=== PATIENT | female | born 1965 | race Caucasian/White ===

== ENCOUNTER 2018-04-20 14:32 | Emergency (ER) | payer OTHER ==
[2018-04-20] MEDS ORDERED: DEXAMETHASONE 10 MG/ML VIAL PO STA (15:51)
--- NOTE | 2018-04-20 16:37 | ED Physician Documentation ---
PD HPI HEENT - Stated complaint Stated Complaint: THROAT TIGHTNESS - Chief complaint Chief Complaint: General - History obtained from History obtained from: Patient - History of Present Illness Timing - onset: How many days ago (2) Timing - details: Still present Location: Throat Similar symptoms before: Has not had sx before - Additional information Additional information: The patient is a 52-year-old female who presents with sore throat of 2 days' duration. She states it "feels like it is closing up." She has had slight cough, nonproductive. She denies shortness of breath, fever, or rash. She denies history of similar symptoms in the past. She has recently moved to [facility] from [place], and is living in [id number]. She has not noticed any black mold. She is suspicious of environmental allergies from pollen in the air. Review of Systems Constitutional: denies: Fever Eyes: denies: Irritation Ears: denies: Ear pain Nose: reports: Congestion (Slight) Throat: reports: Sore throat Cardiac: denies: Chest pain / pressure Respiratory: reports: Cough (slight, nonproductive.). denies: Dyspnea GI: denies: Abdominal Pain, Nausea, Vomiting : denies: Dysuria Skin: denies: Rash Musculoskeletal: denies: Extremity swelling Neurologic: denies: Headache PD PAST MEDICAL HISTORY - Past Medical History Past Medical History: Yes Other Past Medical History: Bacterial cardio - Past Surgical History Past Surgical History: Yes General: Appendectomy - Present Medications Home Medications: Ambulatory Orders Medication Instructions Recorded Confirmed predniSONE [Deltasone] 20 mg PO DAILY #10 tablet 04/20/18 - Allergies Allergies/Adverse Reactions: Allergies Allergy/AdvReac Type Severity Reaction Status Date / Time morphine AdvReac Emesis Verified 04/20/18 14:52 - Social History Does the pt smoke?: No Smoking Status: Never smoker Does the pt drink ETOH?: Yes Does the pt have substance abuse?: No - Immunizations Immunizations are current?: Yes PD ED PE NORMAL - Vitals Vital signs reviewed: Yes (Initially hypertensive.) - General General: Alert and oriented X 3, Well developed/nourished, Other (Speaks with a low, just above a whisper, voice.) - HEENT HEENT: Atraumatic, Ears normal, Pharynx benign - Neck Neck: No adenopathy, No JVD - Cardiac Cardiac: RRR, No murmur - Respiratory Respiratory: No respiratory distress, Clear bilaterally - Derm Derm: No rash - Extremities Extremities: No edema - Neuro Neuro: Alert and oriented X 3, No motor deficit Results - Vitals Vitals: Oxygen O2 Source Room air - Labs Labs: Microbiology 04/20/18 15:05 Group A Strep Throat Culture - Preliminary Throat CULTURE IN PROGRESS. RESULTS TO FOLLOW. Laboratory Tests 04/20/18 15:05 Group A Strep Rapid Negative PD MEDICAL DECISION MAKING - ED course Complexity details: reviewed results, considered differential, d/w patient ED course: The patient's presentation is most consistent with viral pharyngitis. Strep screen is negative. The possibility of allergic reaction is considered, but is less likely. Treatment in the emergency department included administration of dexamethasone 10 mg orally. She is being discharged with prescription for prednisone. I discussed with her the likely course of illness, symptomatic treatment and outpatient follow-up, as well as potentially worrisome signs or symptoms that should prompt reevaluation in the emergency department. - Sepsis Event Vital Signs: Oxygen O2 Source Room air Departure - Departure Disposition: 01 Home, Self Care Clinical Impression: Viral pharyngitis Condition: Stable Instructions: ED Pharyngitis Viral Prescriptions: predniSONE [Deltasone] 20 mg PO DAILY #10 tablet Comments: He can use Tylenol or ibuprofen if needed for fever or discomfort. Gargle with cool liquids. Take prednisone daily as prescribed for 5 days. Follow up with primary physician. Call to schedule appointment. Return to the emergency department if you develop increasing difficulty swallowing, increasing difficulty breathing, or otherwise worsening symptoms. Discharge Date/Time: 04/20/18 16:46
[2018-04-20 16:47] VITALS: BP 140/87
== END 2018-04-20 16:46 | disposition home or self-care (01) ==
LOC: ED 14:32
DX: J02.8 Acute pharyngitis due to other specified organisms (principal); B97.89 Other viral agents as the cause of diseases classified elsewhere
CPT/HCPCS: 87070; 87430; 99283